=== PATIENT | female | born 1945 | race Caucasian/White ===

== ENCOUNTER 2019-05-06 20:25 | Observation (INO) | payer MEDICARE, BC ==
--- NOTE | 2019-05-06 20:54 | EDM.PDOC ---
ED HPI GENERAL MEDICAL PROBLEM - General Chief Complaint: General Stated Complaint: syncope Time Seen by Provider: 05/06/19 20:45 Source of Information: Reports: Patient, Family (Son, daughter), Old Records ( [facility] EMR. No paper hospital chart available.) History Limitations: Reports: No Limitations - History of Present Illness INITIAL COMMENTS - FREE TEXT/NARRATIVE: The patient was brought to the emergency room via ambulance with jacquard loom carpet weaver accompaniment with failed attempted IV access in route, however no other treatment. Per history from the patient's son and daughter the patient had a true syncopal episode while sitting in her chair at about 19:55 hours with moderate diaphoresis and loss of consciousness for about 45-60 seconds with subsequent 10-15 minute episode of some sedation and confusion. Previous history of syncopal episodes with no noted seizure activity, urine/stool incontinence, etc.. No history of recent headaches, visual changes, diplopia, change in mental status, or other change in neurological status. The patient denies any chest pain/pressure, heart flutter, orthostasis, orthopnea, diaphoresis, paresthesias, recent decreased exercise tolerance, or any other anginal-type symptoms. She has had some problems with about 20 loose watery stools since early this morning with additional multiple family members having viral gastroenteritis. No recent history of abdominal pain, heartburn, nausea, melena, gross hematochezia, or any food intolerance, including fatty foods, etc.. No known history of food poisoning. The patient also denies any recent fever, cough, wheezing, dyspnea, etc.. Home Accu-Cheks have been averaging in the 120s to 130s and ranging between the 90s-160s. She denies any gross hematuria, colic, or other UTI symptoms. Onset: Today, Sudden Onset Date: 05/06/19 Onset Time: 19:55 Duration: Resolved Prior to Arrival Location: Reports: Other (No pain) Improves with: Reports: None Worsens with: Reports: None Context: Reports: Sick Contact (Viral GE as above). Denies: Trauma (No history of fall or injury) Associated Symptoms: Reports: Confusion, Diaphoresis, Syncope. Denies: Chest Pain, Cough, Fever/Chills, Headaches, Loss of Appetite, Malaise, Nausea/Vomiting , Seizure, Shortness of Breath, Weakness Treatments PRODUCTION SERVICE MANAGER: Reports: Other (see below) (None) - Related Data Allergies Allergy/AdvReac Type Severity Reaction Status Date / Time No Known Allergies Allergy Verified 05/06/19 20:31 Home Meds: Home Meds Aspirin [Ecotrin EC] 1 tab PO DAILY 05/06/19 [History] Metoprolol Tartrate [Lopressor] 2 tab PO DAILY 05/06/19 [History] Nitroglycerin [Nitrostat] 1 tab PO ONETIME PRN 05/06/19 [History] Triamterene/Hydrochlorothiazid [Triamterene-HCTZ 37.5-25 MG] 1 tab PO DAILY [History] glipiZIDE [Glipizide Xl] 1 tab PO DAILY 05/06/19 [History] metFORMIN [Glucophage XR] 1 tab PO BEDTIME 05/06/19 [History] metFORMIN [Glucophage XR] 2 tab PO DAILY 05/06/19 [History] Past Medical History HEENT History: Reports: Cataract, Impaired Vision, Other (See Below). Denies: Allergic Rhinitis, Glaucoma, Hard of Hearing, Macular Degeneration, Otitis Media , Retinal Detachment Other HEENT History: No history of diabetic retinopathy. Patient does wear glasses. Cardiovascular History: Reports: Bypass, CAD, High Cholesterol, Hypertension, [place] , Other (See Below). Denies: Afib, Aneurysm, Arrhythmia, Blood Clots/VTE/DVT, Cardiomyopathy, Heart Failure, Heart Murmur, PTCA, PVD, SOB on Exertion, Stents , Syncope Other Cardiovascular History: History of KS in 10/18/12 with bypass surgery as below. Respiratory History: Reports: None, Intubation, Previous. Denies: Asthma, Bronchitis, Recurrent, COPD, Intubation, Difficult, PE, Pneumothorax, Sleep Apnea, TB Gastrointestinal History: Reports: Cholelithiasis, Other (See Below). Denies: Bowel Obstruction, Celiac Disease, Chronic Constipation, Chronic Diarrhea, Colon Polyp, Diverticulosis, Fecal Incontinence, Gastritis, GERD, GI Bleed, Hepatitis, Hiatal Hernia, Inflammatory Bowel Disease, Irritable Bowel Syndrome, Jaundice, Pancreatitis, PUD Other Gastrointestinal History: Umbilical hernia. Genitourinary History: Reports: Chronic Renal Insuffiency, Diabetic Nephropathy. Denies: Acute Renal Failure, Renal Calculus, STD, Urinary Incontinence, UTI, Recurrent HEALTH PRACTICE MANAGER History: Reports: . Denies: Dysfunctional Uterine Bleeding, Endometriosis, Fibroids, Polycystic Ovaries, Spontaneous : 3 Para: 3 LMP (Approximate): Menopausal Other HEALTH PRACTICE MANAGER History: Menopause in her early 50s. Gestational diabetes with the last , which was delivered by . Otherwise full term deliveries by an NSVT without other complications. Musculoskeletal History: Reports: Arthritis, Gout, Osteoarthritis, Other (See Below). Denies: Amputation, Back Pain, Chronic, Fracture, Neck Pain, Chronic, RA, SLE Other Musculoskeletal History: Hyperuricemia with no history of gout attacks. Neurological History: Reports: None. Denies: Concussion, CVA, Frequent Repetitive Habits (TICS), Headaches, Chronic, Head Trauma, Migraines, MS, Neuropathy, Diabetic, Neuropathy, Peripheral, Parkinson's, Seizure, TIA Psychiatric History: Reports: None. Denies: Abuse, Victim of, ADD, ADHD, Addiction, Anxiety, Depression, Psych Hospitalization(s), PTSD, Suicide Attempt , Suicidal Ideation Endocrine/Metabolic History: Reports: Diabetes, Gestational, Diabetes, Type II, Obesity/BMI 30+. Denies: Diabetes Mellitus, Type 3c, Hypothyroidism, IDDM Hematologic History: Reports: None. Denies: Anemia, Blood Transfusion(s), Iron Deficiency Immunologic History: Reports: None. Denies: AIDS, HIV, SLE Oncologic (Cancer) History: Reports: None. Denies: Basal Cell Carcinoma, Breast , Cervix, Colon, Leukemia, Lymphoma, Malignant Melanoma, Non-Hodgkin's Lymphoma , Ovarian, Squamous Cell Carcinoma, Uterine Dermatologic History: Denies: Eczema, Psoriasis - Infectious Disease History Infectious Disease History: Reports: Chicken Pox, Measles, Mumps. Denies: CRE- Carbapenem-Resistant Enterobacteriaceae, Meningitis, Mononucleosis, MRSA, Pertussis (Whooping Cough), Rheumatic Fever, Rubella, Scarlet Fever, Shingles, TB, VRE - Past Surgical History Head Surgeries/Procedures: Reports: None HEENT Surgical History: Reports: Cataract Surgery, Oral Surgery, Other (See Below). Denies: Adenoidectomy, Eye Surgery, Laser Surgery, LASIK, Myringotomy w Tube(s), Naso-Sinus Surgery, Tonsillectomy Other HEENT Surgeries/Procedures: Bilateral cataract surgery at age 71. Multiple teeth extractions. Cardiovascular Surgical History: Reports: None, Coronary Artery Bypass, Other ( See Below). Denies: Varicose Other Cardiovascular Surgeries/Procedures: CABG 3 on 6/10/13. Respiratory Surgical History: Reports: None. Denies: Thoracentesis GI Surgical History: Reports: Cholecystectomy, Colonoscopy, Other (See Below). Denies: Appendectomy, EGD, Hernia, Abdominal, Hernia, Inguinal, Hernia Repair/ Other, Polypectomy Other GI Surgeries/Procedures: Last colonoscopy in about 2014. Open cholecystectomy in October 1983. Female Surgical History: Reports: Section, Other (See Below). Denies: Breast Biopsy, D&C, Hysterectomy, Salpingo-Oophorectomy, Tubal Ligation Other Female Surgeries/Procedures: as above. Endocrine Surgical History: Reports: None. Denies: Thyroid Biopsy Neurological Surgical History: Reports: None. Denies: C-Spine, Discectomy, Laminectomy, Lumbar Spine, Sacral Spine, Spinal Fusion, Thoracic Spine, Vertebroplasty Musculoskeletal Surgical History: Reports: None. Denies: Arthroscopic Knee, Arthroscopic Procedure, Carpal Tunnel, Ganglion Cyst, Joint Replacement, ORIF, Shoulder Surgery Oncologic Surgical History: Reports: None Dermatological Surgical History: Reports: None - Past Imaging History Past Imaging History: Reports: Angiography (October 2012.) Social & Family History - Family History HEENT: Reports: None. Denies: Glaucoma, Macular Degeneration, Retinal Detachment Cardiac: Reports: Bypass, CAD, High Cholesterol, Hypertension, [place], Other (See Below). Denies: Afib, Arrhythmia, Heart Failure, Heart Murmur, Syncope Other Cardiac Family History: Brother with initial KS at age 42 with subsequent multiple MIs and CABGs. Another brother with CABG at age 65. Hypertension in father, brothers 3, and sister. Multiple family members with hyperlipidemia. Respiratory: Reports: Sleep Apnea, Other (See Below). Denies: Asthma, COPD, PE , Pneumothorax Other Respiratory Family Hisory: Son and brothers 2 with sleep apnea. GI: Reports: None. Denies: Celiac Disease, Cholelithiasis, Colon Polyps, GERD, GI bleed, Inflammatory Bowel Disease, Irritable Bowel Syndrome, PUD : Reports: Renal Calculus, UTI, Recurrent. Denies: Renal Disease/ Insufficiency Other Family History: Father with urolithiasis. OBGYN: Reports: None. Denies: Endometriosis, Recurrent Spontaneous Musculoskeletal: Reports: Arthritis, Osteoarthritis, Other (See Below). Denies : Gout, RA, SLE Other Musculoskeletal Family History: Multiple family members with osteoarthritis. Neurological: Reports: CVA, Other (See Below). Denies: Alzheimers Disease, Cerebral Aneurysms, Dementia, Migraines, Parkinson's, Seizure, TIA Other Neurological Family History: Paternal grandmother with organic brain syndrome. Sister with CVA at age 56. Psychiatric: Reports: None. Denies: Abuse, Victim of, ADD, ADHD, Anxiety, Depression, Psych Hospitalization(s), PTSD, Suicide Attempt Endocrine/Metabolic: Reports: Diabetes, type II, Hypoparathyroidism, Hypothyroidism, IDDM, Other (See Below). Denies: Diabetes, Gestational, Diabetes, Type I, Diabetes Mellitus, Type 3c Other Endocrine/Metabolic Family History: Father with IDDM. Mother with history of goiter with secondary hypothyroidism and hypoparathyroidism. Hematologic: Reports: None. Denies: Anemia, SLE Immunologic: Reports: None. Denies: AIDS, HIV, SLE Dermatologic: Reports: None. Denies: Eczema, Psoriasis Oncologic: Reports: None - Tobacco Use Smoking Status *Q: Never Smoker Tobacco Use Within Last Twelve Months: No Used Tobacco, but Quit: No Smoking Cessation Information Provided To Patient: No Second Hand Smoke Education Provided: No - Caffeine Use Caffeine Use: Reports: Coffee (2 cups per day), Soda (1 soda per month), Tea ( Tea when she does not drink coffee.). Denies: Energy Drinks - Alcohol Use Alcohol Use History: No Days Per Week of Alcohol Use: 0 Number of Drinks Per Day: 1 Number of Drinks Per Day Comment: Usually every 13 weeks. No previous DWIs, problems with alcohol abuse, etc. Total Drinks Per Week: 0 Alcohol Use in Last Twelve Months: Yes - Recreational Drug Use Recreational Drug Use: No Drug Use in Last 12 Months: No Recreational Drug Type: Denies: Amphetamines (Speed), Cocaine, Heroin, Inhalants (Glues, Solvents, Aerosols), LSD (Acid), Marijuana/Hashish, Methamphetamine, Morphine, Oxycodone - Living Situation & Occupation Living situation: Reports: (1978. 3 children), with Family () Occupation: Retired (Former teacher retired at age 67.) ED ROS GENERAL - Review of Systems Review Of Systems: Comprehensive ROS is negative, except as noted in HPI. ED EXAM, GENERAL - Physical Exam Exam: See Below Exam Limited By: No Limitations General Appearance: Alert, WD/WN, No Apparent Distress Eye Exam: Bilateral Eye: EOMI, Normal Fundi, Normal Inspection (No nystagmus. Patient wearing glasses), PERRL Ears: Normal External Exam, Normal Canal, Hearing Grossly Normal, Normal TMs Nose: Normal Inspection, Normal Mucosa, No Blood Throat/Mouth: Normal Lips, Normal Gums, Normal Oropharynx, Normal Voice, No Airway Compromise. No: Normal Teeth (Multiple missing teeth), Dysphagia, Perioral Cyanosis Head: Atraumatic, Normocephalic. No: Facial Swelling, Facial Tenderness, Sinus Tenderness Neck: Supple, Non-Tender, Full Range of Motion, Carotid Bruit (Mild bilateral carotid bruits). No: Lymphadenopathy (L), Lymphadenopathy (R), Thyromegaly Respiratory/Chest: No Respiratory Distress, Lungs Clear, Normal Breath Sounds, No Accessory Muscle Use, Chest Non-Tender. No: Pleural Rub, Retractions Cardiovascular: Normal Peripheral Pulses, Regular Rate, Rhythm, No Edema, No Gallop, No JVD, No Murmur, No Rub. No: Gallop/S3, Gallop/S4, Friction Rub Peripheral Pulses: 2+: Radial (L), Radial (R), Dorsalis Pedis (L), Dorsalis Pedis (R) GI/Abdominal: Normal Bowel Sounds, Soft, Non-Tender, No Organomegaly, No Distention, No Abnormal Bruit, No Mass, Pelvis Stable, Hernia (2 cm nonincarcerated umbilical hernia), Other (Obese). No: Guarding (Female) Exam: Deferred Rectal (Female) Exam: Deferred Back Exam: Full Range of Motion, Other (Mild scoliosis). No: CVA Tenderness (L) , CVA Tenderness (R), Muscle Spasm Extremities: Normal Inspection, Normal Range of Motion, Non-Tender, No Pedal Edema, Normal Capillary Refill. No: Conchis's Sign Neurological: Alert, Oriented, CN II-XII Intact, Normal Cognition, Normal Gait, Normal Reflexes (Negative Babinski's, finger to nose, and pronator rotation tests. No evidence of facial paresis, tongue deviation, orthostasis, etc.. Excellent reverse thought processes.), No Motor/Sensory Deficits Psychiatric: Normal Affect, Normal Mood Skin Exam: Warm, Dry, Intact, Normal Color, No Rash. No: Diaphoretic, Wound/ Incision Lymphatic: No Adenopathy EKG INTERPRETATION EKG Date: 05/06/19 Time: 21:45 Rhythm: NSR Rate (Beats/Min): 74 Sc[place]mon: Normal (Neutral) P-Wave: Enlarged (Moderate diffuse biphasic) QRS: Normal (0.08 seconds) ST-T: Other (Nonspecific ST changes with T-wave inversion in leads V1 through V3 ) OR/PQ Interval: 0.18 seconds with extreme poor R-wave progression in the anterior leads. Comparison: NA - No Prior EKG EKG Interpretation Comments: 1. Anterior wall cardiac ischemia 2. Left atrial enlargement Course - Vital Signs Last Recorded V/S: Last Vital Signs Temp 36.6 C 05/06/19 21:23 Pulse 76 05/06/19 21:31 Resp 16 05/06/19 21:31 BP 140/61 05/06/19 21:31 Pulse Ox 97 05/06/19 21:31 Vital Signs - 24 hr 05/06/19 05/06/19 05/06/19 20:29 21:23 21:31 Temperature [ 35.3 C 36.6 C Temporal] Pulse, 78 78 76 Peripheral [ Pulse Oximetry] Respiratory 16 18 16 Rate Blood Pressure 151/67 H 137/62 140/61 [Left] O2 Sat by Pulse 100 98 97 Oximetry - Orders/Labs/Meds Orders: Active Orders 24 hr Category Date Time Status Cardiac Monitoring [RC] . DIRECTED Care 05/06/19 20:54 Active EKG Documentation Completion [RC] ASDIRECTED Care 05/06/19 20:54 Active Oxygen Therapy, ED [RC] PRN Care 05/06/19 20:54 Active Peripheral IV Care [RC] . DIRECTED Care 05/06/19 20:54 Active Pulse Oximetry [RC] CONTINUOUS Care 05/06/19 20:54 Active Up With Assistance [RC] PFP Care 05/06/19 20:54 Active Vital Signs [RC] PFP Care 05/06/19 20:54 Active Nothing per Oral Now Diet [DIET] Diet 05/06/19 Breakfast Active Abdomen Series w Chest 1V [CR] Routine Exams 05/06/19 20:56 Taken PROLACTIN [REF] Stat Lab 05/06/19 21:04 Received Lactated Ringers [Ringers, Lactated] 1,000 ml Med 05/06/19 21:00 Active IV ASDIRECTED Sodium Chloride 0.9% [Saline Flush] Med 05/06/19 20:54 Active 10 ml FLUSH ASDIRECTED PRN Obtain Past Medical Record [OM.PC] Urgent Oth 05/06/19 20:54 Active Peripheral IV Insertion Adult [OM.PC] Stat Oth 05/06/19 20:54 Ordered Resuscitation Status Stat Resus Stat 05/06/19 20:54 Ordered Medication Orders Lactated Ringer's (Ringers, Lactated) 1,000 mls @ 100 mls/hr IV ASDIRECTED RAMÓN Last Admin: 05/06/19 21:17 Dose: 100 mls/hr Sodium Chloride (Saline Flush) 10 ml FLUSH ASDIRECTED PRN PRN Reason: Keep Vein Open Last Admin: 05/06/19 21:18 Dose: 10 ml Labs: Laboratory Tests 05/06/19 05/06/19 05/06/19 Range/Units 21:04 21:04 21:04 WBC 11.8 H (4.0-10.2) K/uL RBC 4.97 (3.77-5.09) M/uL Hgb 14.5 (11.7-15.5) g/dL Hct 44.2 (34.0-46.0) % MCV 88.9 (84.0-98.0) fL MCH 29.2 (28.2-33.3) pg MCHC 32.8 (31.7-36.0) g/dL RDW 14.5 H (11.2-14.1) % Plt Count 279 (150-350) K/uL Neut % (Auto) 89.0 H (45.0-80.0) % Lymph % (Auto) 2.9 L (10.0-50.0) % Gordon % (Auto) 7.3 (2.0-14.0) % Eos % (Auto) 0.6 (0.0-5.0) % Baso % (Auto) 0.2 (0.0-2.0) % Neut # (Auto) 10.47 H (1.40-7.00) K/uL Lymph # (Auto) 0.34 L (0.50-3.50) K/uL Gordon # (Auto) 0.86 (0.00-1.00) K/uL Eos # (Auto) 0.07 (0.00-0.50) K/uL Baso # (Auto) 0.02 (0.00-0.20) K/uL PT 11.4 (9.5-12.0) SEC INR 1.1 APTT 28.8 (21.0-31.3) SEC D-Dimer, Quantitative 272 (0-400) ng/mL Sodium (136-145) mmol/L Potassium (3.5-5.1) mmol/L Chloride (98-107) mmol/L Carbon Dioxide (21.0-32.0) mmol/L BUN (7-18) mg/dL Creatinine (0.51-1.17) mg/dL Est Cr Clr Drug Dosing mL/min Estimated GFR (MDRD) mL/min Glucose (74-106) mg/dL Lactic Acid (0.4-2.0) mmol/L Uric Acid (2.6-7.2) mg/dL Calcium (8.5-10.1) mg/dL Magnesium (1.8-2.4) mg/dL Total Bilirubin (0.2-1.0) mg/dL AST (15-37) U/L ALT (12-78) U/L Alkaline Phosphatase (46-116) IU/L Creatine Kinase (26-308) U/L Creatine Kinase Index (0.0-2.5) % CK-MB (CK-2) (0.00-3.60) ng/mL Troponin I (0.000-0.056) ng/mL NT-Pro-B Natriuret Pep (0-125) pg/mL Total Protein (6.4-8.2) g/dL Albumin (3.4-5.0) g/dL Amylase (25-115) U/L Lipase (73-393) U/L TSH, Ultra Sensitive (0.358-3.740) mIU/mL 05/06/19 05/06/19 Range/Units 21:04 21:04 WBC (4.0-10.2) K/uL RBC (3.77-5.09) M/uL Hgb (11.7-15.5) g/dL Hct (34.0-46.0) % MCV (84.0-98.0) fL MCH (28.2-33.3) pg MCHC (31.7-36.0) g/dL RDW (11.2-14.1) % Plt Count (150-350) K/uL Neut % (Auto) (45.0-80.0) % Lymph % (Auto) (10.0-50.0) % Gordon % (Auto) (2.0-14.0) % Eos % (Auto) (0.0-5.0) % Baso % (Auto) (0.0-2.0) % Neut # (Auto) (1.40-7.00) K/uL Lymph # (Auto) (0.50-3.50) K/uL Gordon # (Auto) (0.00-1.00) K/uL Eos # (Auto) (0.00-0.50) K/uL Baso # (Auto) (0.00-0.20) K/uL PT (9.5-12.0) SEC INR APTT (21.0-31.3) SEC D-Dimer, Quantitative (0-400) ng/mL Sodium 134 L (136-145) mmol/L Potassium 4.2 (3.5-5.1) mmol/L Chloride 99 (98-107) mmol/L Carbon Dioxide 25.2 (21.0-32.0) mmol/L BUN 21 H (7-18) mg/dL Creatinine 1.09 (0.51-1.17) mg/dL Est Cr Clr Drug Dosing 42.60 mL/min Estimated GFR (MDRD) 49 mL/min Glucose 184 H (74-106) mg/dL Lactic Acid 1.6 (0.4-2.0) mmol/L Uric Acid 10.4 H (2.6-7.2) mg/dL Calcium 9.4 (8.5-10.1) mg/dL Magnesium 1.4 L (1.8-2.4) mg/dL Total Bilirubin 0.4 (0.2-1.0) mg/dL AST 21 (15-37) U/L ALT 28 (12-78) U/L Alkaline Phosphatase 64 (46-116) IU/L Creatine Kinase 92 (26-308) U/L Creatine Kinase Index 2.0 (0.0-2.5) % CK-MB (CK-2) 1.80 (0.00-3.60) ng/mL Troponin I 0.000 (0.000-0.056) ng/mL NT-Pro-B Natriuret Pep 419 H (0-125) pg/mL Total Protein 8.2 (6.4-8.2) g/dL Albumin 3.8 (3.4-5.0) g/dL Amylase 56 (25-115) U/L Lipase 195 (73-393) U/L TSH, Ultra Sensitive 2.218 (0.358-3.740) mIU/mL Meds: Medications Generic Name Dose Route Start Last Admin Trade Name Freq PRN Reason Stop Dose Admin Lactated Ringer's 1,000 mls @ 100 mls/hr 05/06/19 21:00 05/06/19 21:17 Ringers, Lactated IV 100 mls/hr ASDIRECTED RAMÓN Administration Sodium Chloride 10 ml 05/06/19 20:54 05/06/19 21:18 Saline Flush FLUSH 10 ml ASDIRECTED PRN Administration Keep Vein Open Discontinued Medications Generic Name Dose Route Start Last Admin Trade Name Freq PRN Reason Stop Dose Admin Famotidine 40 mg 05/06/19 20:54 05/06/19 21:17 Pepcid IVPUSH 05/06/19 20:55 40 mg ONETIME ONE Administration - Radiology Interpretation Free Text/Narrative:: campus monitor shows normal sinus rhythm in the 70s with no ectopy or arrhythmia. Acute abdominal x-rays showed status post median sternotomy and cholecystectomy with moderate osteoarthritic changes and mild scoliosis in the spine. Nonspecific bowel gaseous pattern and stool with no fluid levels, free air, ileus, or obstruction. No significant cardiomegaly with borderline mild centralized CHF. Departure - Departure Time of Disposition: 22:35 Disposition: Refer to Observation Condition: Good Clinical Impression: Hyperuricemia, Hypomagnesemia, Viral gastroenteritis Syncope Qualifiers: Syncope type: unspecified Qualified Code(s): R55 - Syncope and collapse CAD (coronary artery disease) Qualifiers: Coronary Disease-Associated Artery/Lesion type: bypass graft [place] vs. transplanted heart: [place] heart Associated angina: without angina Qualified Code(s): I25.810 - Atherosclerosis of coronary artery bypass graft(s) without angina pectoris Hypertension Qualifiers: Hypertension type: essential hypertension Qualified Code(s): I10 - Essential ( primary) hypertension Hyperlipidemia Qualifiers: Hyperlipidemia type: unspecified Qualified Code(s): E78.5 - Hyperlipidemia, unspecified CHF (congestive heart failure) Qualifiers: Heart failure type: unspecified Heart failure chronicity: acute Qualified Code( s): I50.9 - Heart failure, unspecified Diabetes mellitus Qualifiers: Diabetes mellitus type: type 2 Diabetes mellitus rodent exterminator insulin use: without rodent exterminator use Diabetes mellitus complication status: with kidney complications Diabetes mellitus complication detail: with nephropathy Qualified Code(s): E11.21 - Type 2 diabetes mellitus with diabetic nephropathy - Discharge Information *PRESCRIPTION DRUG MONITORING PROGRAM REVIEWED*: Not Applicable *COPY OF PRESCRIPTION DRUG MONITORING REPORT IN PATIENT WARREN: Not Applicable ( See plan) Sepsis Event Note - Focused Exam Vital Signs: Vital Signs Temp Pulse Resp BP Pulse Ox 05/06/19 21:31 76 16 140/61 97 05/06/19 21:23 36.6 C 78 18 137/62 98 05/06/19 20:29 35.3 C 78 16 151/67 H 100 Date Exam was Performed: 05/06/19 Time Exam was Performed: 22:35 - Problem List & Annotations (1) Syncope SNOMED Code(s): 400838256 Code(s): R55 - SYNCOPE AND COLLAPSE Status: Acute Priority: High Current Visit: Yes Onset Date: 05/06/19 Annotation/Comment:: Syncopal episode of unknown etiology. Note anterior wall ischemic changes as below. Cannot rule out possible seizure disorder secondary to post episode confusion and sedation. Prolactin level drawn with results pending. Consider CT scan of the head depending on her clinical course. No neurological deficits. Qualifiers: Syncope type: unspecified Qualified Code(s): R55 - Syncope and collapse (2) CAD (coronary artery disease) SNOMED Code(s): 41533328 Code(s): I25.10 - ATHSCL HEART DISEASE OF [place] CORONARY ARTERY W/O ANG PCTRS Status: Chronic Priority: Medium Current Visit: Yes Annotation/ Comment:: Chest pain or anginal type symptoms, however note mild possible anterior wall cardiac ischemia and borderline CHF. Initiate standard rule out [place] orders. Cardiology consultation depending on her clinical course. Patient may benefit from an outpatient Cardiolite stress test. Qualifiers: Coronary Disease-Associated Artery/Lesion type: bypass graft [place] vs. transplanted heart: [place] heart Associated angina: without angina Qualified Code(s): I25.810 - Atherosclerosis of coronary artery bypass graft(s) without angina pectoris (3) CHF (congestive heart failure) SNOMED Code(s): 34657155 Code(s): I50.9 - HEART FAILURE, UNSPECIFIED Status: Acute Priority: High Current Visit: Yes Onset Date: 05/06/19 Annotation/Comment:: Mild BNP elevation and centralized CHF by chest x-ray. Patient would benefit from an outpatient echocardiogram. IV fluids with caution secondary to CHF with viral gastroenteritis as below. Qualifiers: Heart failure type: unspecified Heart failure chronicity: acute Qualified Code(s): I50.9 - Heart failure, unspecified (4) Diabetes mellitus SNOMED Code(s): 95757241 Code(s): E11.9 - TYPE 2 DIABETES MELLITUS WITHOUT COMPLICATIONS Status: Chronic Priority: Medium Current Visit: Yes Annotation/Comment:: Accu- Cheks have been under good control at home as above. Glycosylated hemoglobin in the a.m. Qualifiers: Diabetes mellitus type: type 2 Diabetes mellitus rodent exterminator insulin use: without rodent exterminator use Diabetes mellitus complication status: with kidney complications Diabetes mellitus complication detail: with nephropathy Qualified Code(s): E11.21 - Type 2 diabetes mellitus with diabetic nephropathy (5) Hyperlipidemia SNOMED Code(s): 25165116 Code(s): E78.5 - HYPERLIPIDEMIA, UNSPECIFIED Status: Chronic Priority: Medium Current Visit: Yes Annotation/Comment:: Lipid panel in the a.m. Weight loss in moderation as advised. Qualifiers: Hyperlipidemia type: unspecified Qualified Code(s): E78.5 - Hyperlipidemia , unspecified (6) Hypertension SNOMED Code(s): 15687992 Code(s): I10 - ESSENTIAL (PRIMARY) HYPERTENSION Status: Chronic Priority : Medium Current Visit: Yes Annotation/Comment:: Blood pressures under good control in the emergency room. Qualifiers: Hypertension type: essential hypertension Qualified Code(s): I10 - Essential (primary) hypertension (7) Hyperuricemia SNOMED Code(s): 76996271 Code(s): E79.0 - HYPERURICEMIA W/O SIGNS OF INFLAM ARTHRIT AND TOPHACEOUS DIS Status: Chronic Priority: Medium Current Visit: Yes Annotation/ Comment:: No recent gout attacks or symptoms. Her arthritis is otherwise been stable. (8) Hypomagnesemia SNOMED Code(s): 083836868 Code(s): E83.42 - HYPOMAGNESEMIA Status: Acute Priority: Medium Current Visit: Yes Onset Date: 05/06/19 Annotation/Comment:: IV magnesium sulfate therapy after admission. No oral magnesium for now secondary to her diarrhea. (9) Viral gastroenteritis SNOMED Code(s): 154641779 Code(s): A08.4 - VIRAL INTESTINAL INFECTION, UNSPECIFIED Status: Acute Priority: Medium Current Visit: Yes Annotation/Comment:: Probable mild viral gastroenteritis with no significant clinical dehydration, however note syncopal episode as above. IV fluids started with caution in the emergency room as above and will be continued during initial courses of this hospitalization. Consider stool cultures etc. depending on her clinical course, however observe for now. - Problem List Review Problem List Initiated/Reviewed/Updated: Yes - My Orders Last 24 Hours: My Active Orders 05/06/19 20:54 Cardiac Monitoring [RC] . DIRECTED EKG Documentation Completion [RC] ASDIRECTED Oxygen Therapy, ED [RC] PRN Peripheral IV Care [RC] . DIRECTED Pulse Oximetry [RC] CONTINUOUS Up With Assistance [RC] PFP Vital Signs [RC] PFP Sodium Chloride 0.9% [Saline Flush] 10 ml FLUSH ASDIRECTED PRN Obtain Past Medical Record [OM.PC] Urgent Peripheral IV Insertion Adult [OM.PC] Stat Resuscitation Status Stat 05/06/19 20:56 Abdomen Series w Chest 1V [CR] Routine 05/06/19 21:00 Lactated Ringers [Ringers, Lactated] 1,000 ml IV ASDIRECTED 05/06/19 21:04 PROLACTIN [REF] Stat 05/06/19 Breakfast Nothing per Oral Now Diet [DIET] - Assessment/Plan Admission H&P: Please use this note as an admission H&P Last 24 Hours: My Active Orders 05/06/19 20:54 Cardiac Monitoring [RC] . DIRECTED EKG Documentation Completion [RC] ASDIRECTED Oxygen Therapy, ED [RC] PRN Peripheral IV Care [RC] . DIRECTED Pulse Oximetry [RC] CONTINUOUS Up With Assistance [RC] PFP Vital Signs [RC] PFP Sodium Chloride 0.9% [Saline Flush] 10 ml FLUSH ASDIRECTED PRN Obtain Past Medical Record [OM.PC] Urgent Peripheral IV Insertion Adult [OM.PC] Stat Resuscitation Status Stat 05/06/19 20:56 Abdomen Series w Chest 1V [CR] Routine 05/06/19 21:00 Lactated Ringers [Ringers, Lactated] 1,000 ml IV ASDIRECTED 05/06/19 21:04 PROLACTIN [REF] Stat 05/06/19 Breakfast Nothing per Oral Now Diet [DIET] Assessment:: As above. Plan: As above. Extensive precautions were given to the patient and her family, who are in agreement with the treatment plan. The patient's condition is stable enough for observation status and general supervision.
[2019-05-06] MEDS: Lactated Ringers 1,000 ML IV SCH (21:17)
[2019-05-06] MEDS: Famotidine 20 MG/2 ML SDV IVPUSH ONE (21:17)
[2019-05-06] MEDS: Sodium Chloride 0.9% 10 ML Syringe FLUSH PRN (21:18)
[2019-05-06] MEDS ORDERED: Sodium Chloride 0.9% 10 ML Syringe FLUSH PRN (22:54)
[2019-05-06] MEDS ORDERED: Acetaminophen 325 MG Tab PO PRN (22:54)
[2019-05-06] MEDS: Enoxaparin 30 MG/0.3 ML Syringe SUBCUT ONE (23:28)
[2019-05-06] MEDS: Magnesium Sulfate/D5W 1 GM/100 ML Premix Bag IV ONE (23:29)
[2019-05-07] MEDS: Temazepam 15 MG Cap PO PRN (00:20)
[2019-05-07 07:32] LABS: HEMOGLOBIN A1C 6.7 % (4.3-5.7)
[2019-05-07 07:50] LABS: CHLORIDE,CL 102 mmol/L (98-107); SODIUM,NA 138 mmol/L (136-145)
[2019-05-07] MEDS: Metoprolol Tartrate 25 MG Tab PO SCH (09:11)
[2019-05-07] MEDS: Hydrochlorothiazide/Triamterene 50-75 MG Tab PO SCH (09:11)
[2019-05-07] MEDS: Aspirin 325 MG Tab.EC PO SCH (09:11)
[2019-05-07] MEDS: metFORMIN 500 MG Tab.ER PO SCH (09:11)
[2019-05-07] MEDS: glipiZIDE 5 MG Tab.ER PO SCH (09:11)
--- NOTE | 2019-05-07 12:45 | PCM.DCSUM1 ---
Discharge Summary - Hospital Course Brief History: Patient admitted for observation and IV fluids after experiencing gastroenteritis that likely led to syncopal episode. Diagnosis: Stroke: No - Discharge Data Discharge Date: 05/07/19 Discharge Disposition: Home, Self-Care 01 Condition: Good - Referral to Home Health Primary Care Physician: Cherise Anderson PA-C - Discharge Diagnosis/Problem(s) (1) Viral gastroenteritis SNOMED Code(s): 722135226 ICD Code: A08.4 - VIRAL INTESTINAL INFECTION, UNSPECIFIED Status: Acute Priority: Medium Current Visit: Yes Problem Details: Probable mild viral gastroenteritis with no significant clinical dehydration. Syncopal episode. No further emesis/loose stools. Patient feels much better today. (2) Hypomagnesemia SNOMED Code(s): 891392243 ICD Code: E83.42 - HYPOMAGNESEMIA Status: Acute Priority: Medium Current Visit: Yes Onset Date: 05/06/19 Problem Details: IV magnesium sulfate therapy after admission. Continue regular oral supplementation after discharge. (3) CHF (congestive heart failure) SNOMED Code(s): 06691435 ICD Code: I50.9 - HEART FAILURE, UNSPECIFIED Status: Acute Priority: High Current Visit: Yes Onset Date: 05/06/19 Problem Details: Mild BNP elevation and centralized CHF by chest x-ray. Patient would benefit from an outpatient echocardiogram. Will have her follow up with primary provider. Qualifiers: Heart failure type: unspecified Heart failure chronicity: acute Qualified Code(s): I50.9 - Heart failure, unspecified (4) Syncope SNOMED Code(s): 631693604 ICD Code: R55 - SYNCOPE AND COLLAPSE Status: Acute Priority: High Current Visit: Yes Onset Date: 05/06/19 Problem Details: Syncopal episode accompanied by significant gastroenteritis/diarrhea. Suspect it to be secondary to the illness. However,cannot rule out possible etiology such as seizure disorder secondary to post episode confusion and sedation. To observe for recurrence/follow up with primary provider. Qualifiers: Syncope type: unspecified Qualified Code(s): R55 - Syncope and collapse (5) CAD (coronary artery disease) SNOMED Code(s): 01364916 ICD Code: I25.10 - ATHSCL HEART DISEASE OF [place] CORONARY ARTERY W/O ANG PCTRS Status: Chronic Priority: Medium Current Visit: Yes Problem Details: No complaint of chest pain. Troponins negative. No changes observed on telemetry during hospitalization. To follow up with primary provider. Patient may benefit from an outpatient Cardiolite stress test. Qualifiers: Coronary Disease-Associated Artery/Lesion type: bypass graft [place] vs. transplanted heart: [place] heart Associated angina: without angina Qualified Code(s): I25.810 - Atherosclerosis of coronary artery bypass graft(s) without angina pectoris (6) Diabetes mellitus SNOMED Code(s): 38254181 ICD Code: E11.9 - TYPE 2 DIABETES MELLITUS WITHOUT COMPLICATIONS Status: Chronic Priority: Medium Current Visit: Yes Problem Details: Accu-Cheks have been under good control at home as above. Glycosylated hemoglobin 6.7 Qualifiers: Diabetes mellitus type: type 2 Diabetes mellitus manager intermediate insulin use: without intermediate use Diabetes mellitus complication status: with kidney complications Diabetes mellitus complication detail: with nephropathy Qualified Code(s): E11.21 - Type 2 diabetes mellitus with diabetic nephropathy (7) Hypertension SNOMED Code(s): 75493800 ICD Code: I10 - ESSENTIAL (PRIMARY) HYPERTENSION Status: Chronic Priority : Medium Current Visit: Yes Problem Details: Blood pressures under overall good control. To follow up with primary provider. Qualifiers: Hypertension type: essential hypertension Qualified Code(s): I10 - Essential (primary) hypertension (8) Hyperuricemia SNOMED Code(s): 27007456 ICD Code: E79.0 - HYPERURICEMIA W/O SIGNS OF INFLAM ARTHRIT AND TOPHACEOUS DIS Status: Chronic Priority: Medium Current Visit: Yes Problem Details : No recent gout attacks or symptoms. Her arthritis is otherwise been stable. (9) Hyperlipidemia SNOMED Code(s): 17504524 ICD Code: E78.5 - HYPERLIPIDEMIA, UNSPECIFIED Status: Chronic Priority: Medium Current Visit: Yes Problem Details: Normal cholesterol and LDL. Low HDL. Trigs pending at this time. Weight loss in moderation as advised. To follow up with primary provider. Qualifiers: Hyperlipidemia type: unspecified Qualified Code(s): E78.5 - Hyperlipidemia , unspecified - Patient Summary/Data Hospital Course: Patient received IV fluids and Magnesium replacement. Observed overnight. Unremarkable telemetry. No further episodes of loose stools. Feels much better this morning. Had breakfast. Troponin negative. Mag slightly improved. WBC normalized. Patient would like to go home. Plan at this time is to give her one additional dose of IV Mag and she will then be discharged home. Precautions reviewed prior to discharge. To follow up with primary care provider. - Patient Instructions Diet: Limited Carb (advance diet as tolerated. Recommend limited carb diet of 100-120 gm total carbs daily. ) Activity: As Tolerated Driving: Do Not Drive Showering/Bathing: May Shower Other/Special Instructions: We suspect that the syncopal episode you experienced yesterday was likely related to the GI illness you were experiencing. However, it is important to remember to consider other possible causes, especially if you have another episode. Please follow up with your regular provider and discuss if you might benefit from a stress test/cardiac echo to better look at your current heart health. Your Magnesium level was very low. Please start taking a Magnesium supplement (Mag Taurate or Mag Glycinate are very good), around 500mg daily. Your A1C level was over 6 which shows that your blood sugars have been running high. Recommend a carb limited diet. A good initial target is eating a total of 100gm of carbs daily and see how that affects your blood sugars. It can be adjusted from there. Follow up otherwise as needed if you have additional problems. Have Magnesium level rechecked in 3- 4 weeks. - Discharge Plan *PRESCRIPTION DRUG MONITORING PROGRAM REVIEWED*: Not Applicable *COPY OF PRESCRIPTION DRUG MONITORING REPORT IN PATIENT [place]: Not Applicable ( See plan) Home Medications: Home Meds Aspirin [Ecotrin EC] 1 tab PO DAILY 05/06/19 [History] Metoprolol Tartrate [Lopressor] 2 tab PO DAILY 05/06/19 [History] Nitroglycerin [Nitrostat] 1 tab PO ONETIME PRN 05/06/19 [History] Triamterene/Hydrochlorothiazid [Triamterene-HCTZ 37.5-25 MG] 1 tab PO DAILY [History] glipiZIDE [Glipizide Xl] 1 tab PO DAILY 05/06/19 [History] metFORMIN [Glucophage XR] 1 tab PO BEDTIME 05/06/19 [History] metFORMIN [Glucophage XR] 2 tab PO DAILY 05/06/19 [History] Magnesium Glycinate 500 gm MC DAILY #90 dose 05/07/19 [Rx] Forms: ED Department Discharge Referrals: Cherise Anderson PA-C [Primary Care Provider] - - Discharge Summary/Plan Comment DC Time >30 min.: Yes (To be discharged after receiving Magnesium dose IV) - General Info Date of Service: 05/07/19 Admission Dx/Problem (Free Text: Diarrhea/syncopal episode/dehydration Subjective Update: Patient feels tired but overall feels much better today. Functional Status: Reports: Pain Controlled, Tolerating Diet, Ambulating, Urinating. Denies: New Symptoms - Review of Systems General: Reports: Fatigue. Denies: Fever, Malaise, Chills, Night Sweats HEENT: Reports: No Symptoms Pulmonary: Reports: No Symptoms Cardiovascular: Reports: No Symptoms. Denies: Chest Pain, Palpitations, Lightheadedness Gastrointestinal: Denies: Abdominal Pain, Diarrhea, Hematochezia, Nausea, Vomiting Genitourinary: Reports: No Symptoms Musculoskeletal: Reports: No Symptoms Skin: Reports: No Symptoms Neurological: Reports: No Symptoms Psychiatric: Reports: No Symptoms - Patient Data Vitals - Most Recent: Last Vital Signs Temp 36.7 C 05/07/19 12:00 Pulse 65 05/07/19 12:00 Resp 17 05/07/19 12:00 BP 155/79 H 05/07/19 09:11 Pulse Ox 94 L 05/07/19 12:00 Weight - Most Recent: 95.345 kg I&O - Last 24 hours: Intake & Output 05/06/19 05/07/19 05/07/19 22:59 06:59 14:59 Output Total 400 Balance -400 Lab Results - Last 24 hrs: Laboratory Results - last 24 hr 05/06/19 05/06/19 05/06/19 Range/Units 21:04 21:04 21:04 WBC 11.8 H (4.0-10.2) K/uL RBC 4.97 (3.77-5.09) M/uL Hgb 14.5 (11.7-15.5) g/dL Hct 44.2 (34.0-46.0) % MCV 88.9 (84.0-98.0) fL MCH 29.2 (28.2-33.3) pg MCHC 32.8 (31.7-36.0) g/dL RDW 14.5 H (11.2-14.1) % Plt Count 279 (150-350) K/uL Neut % (Auto) 89.0 H (45.0-80.0) % Lymph % (Auto) 2.9 L (10.0-50.0) % [place] % (Auto) 7.3 (2.0-14.0) % Eos % (Auto) 0.6 (0.0-5.0) % Baso % (Auto) 0.2 (0.0-2.0) % Neut # (Auto) 10.47 H (1.40-7.00) K/uL Lymph # (Auto) 0.34 L (0.50-3.50) K/uL [place] # (Auto) 0.86 (0.00-1.00) K/uL Eos # (Auto) 0.07 (0.00-0.50) K/uL Baso # (Auto) 0.02 (0.00-0.20) K/uL PT 11.4 (9.5-12.0) SEC INR 1.1 APTT 28.8 (21.0-31.3) SEC D-Dimer, Quantitative 272 (0-400) ng/mL Sodium (136-145) mmol/L Potassium (3.5-5.1) mmol/L Chloride (98-107) mmol/L Carbon Dioxide (21.0-32.0) mmol/L BUN (7-18) mg/dL Creatinine (0.51-1.17) mg/dL Est Cr Clr Drug Dosing mL/min Estimated GFR (MDRD) mL/min Glucose (74-106) mg/dL Hemoglobin A1c (4.3-5.7) % Lactic Acid (0.4-2.0) mmol/L Uric Acid (2.6-7.2) mg/dL Calcium (8.5-10.1) mg/dL Magnesium (1.8-2.4) mg/dL Total Bilirubin (0.2-1.0) mg/dL AST (15-37) U/L ALT (12-78) U/L Alkaline Phosphatase (46-116) IU/L Creatine Kinase (26-308) U/L Creatine Kinase Index (0.0-2.5) % CK-MB (CK-2) (0.00-3.60) ng/mL Troponin I (0.000-0.056) ng/mL NT-Pro-B Natriuret Pep (0-125) pg/mL Total Protein (6.4-8.2) g/dL Albumin (3.4-5.0) g/dL Cholesterol (100-200) mg/dL LDL Cholesterol, Calc (0-100) mg/dL HDL Cholesterol (40-60) mg/dL Amylase (25-115) U/L Lipase (73-393) U/L TSH, Ultra Sensitive (0.358-3.740) mIU/mL 05/06/19 05/06/19 05/07/19 Range/Units 21:04 21:04 07:10 WBC 7.0 (4.0-10.2) K/uL RBC 4.40 (3.77-5.09) M/uL Hgb 12.9 D (11.7-15.5) g/dL Hct 39.0 (34.0-46.0) % MCV 88.6 (84.0-98.0) fL MCH 29.3 (28.2-33.3) pg MCHC 33.1 (31.7-36.0) g/dL RDW 14.3 H (11.2-14.1) % Plt Count 241 (150-350) K/uL Neut % (Auto) 76.1 (45.0-80.0) % Lymph % (Auto) 11.1 (10.0-50.0) % [place] % (Auto) 11.8 (2.0-14.0) % Eos % (Auto) 0.9 (0.0-5.0) % Baso % (Auto) 0.1 (0.0-2.0) % Neut # (Auto) 5.35 (1.40-7.00) K/uL Lymph # (Auto) 0.78 (0.50-3.50) K/uL [place] # (Auto) 0.83 (0.00-1.00) K/uL Eos # (Auto) 0.06 (0.00-0.50) K/uL Baso # (Auto) 0.01 (0.00-0.20) K/uL PT (9.5-12.0) SEC INR APTT (21.0-31.3) SEC D-Dimer, Quantitative (0-400) ng/mL Sodium 134 L (136-145) mmol/L Potassium 4.2 (3.5-5.1) mmol/L Chloride 99 (98-107) mmol/L Carbon Dioxide 25.2 (21.0-32.0) mmol/L BUN 21 H (7-18) mg/dL Creatinine 1.09 (0.51-1.17) mg/dL Est Cr Clr Drug Dosing 42.60 mL/min Estimated GFR (MDRD) 49 mL/min Glucose 184 H (74-106) mg/dL Hemoglobin A1c (4.3-5.7) % Lactic Acid 1.6 (0.4-2.0) mmol/L Uric Acid 10.4 H (2.6-7.2) mg/dL Calcium 9.4 (8.5-10.1) mg/dL Magnesium 1.4 L (1.8-2.4) mg/dL Total Bilirubin 0.4 (0.2-1.0) mg/dL AST 21 (15-37) U/L ALT 28 (12-78) U/L Alkaline Phosphatase 64 (46-116) IU/L Creatine Kinase 92 (26-308) U/L Creatine Kinase Index 2.0 (0.0-2.5) % CK-MB (CK-2) 1.80 (0.00-3.60) ng/mL Troponin I 0.000 (0.000-0.056) ng/mL NT-Pro-B Natriuret Pep 419 H (0-125) pg/mL Total Protein 8.2 (6.4-8.2) g/dL Albumin 3.8 (3.4-5.0) g/dL Cholesterol (100-200) mg/dL LDL Cholesterol, Calc (0-100) mg/dL HDL Cholesterol (40-60) mg/dL Amylase 56 (25-115) U/L Lipase 195 (73-393) U/L TSH, Ultra Sensitive 2.218 (0.358-3.740) mIU/mL 05/07/19 05/07/19 Range/Units 07:10 07:10 WBC (4.0-10.2) K/uL RBC (3.77-5.09) M/uL Hgb (11.7-15.5) g/dL Hct (34.0-46.0) % MCV (84.0-98.0) fL MCH (28.2-33.3) pg MCHC (31.7-36.0) g/dL RDW (11.2-14.1) % Plt Count (150-350) K/uL Neut % (Auto) (45.0-80.0) % Lymph % (Auto) (10.0-50.0) % [place] % (Auto) (2.0-14.0) % Eos % (Auto) (0.0-5.0) % Baso % (Auto) (0.0-2.0) % Neut # (Auto) (1.40-7.00) K/uL Lymph # (Auto) (0.50-3.50) K/uL [place] # (Auto) (0.00-1.00) K/uL Eos # (Auto) (0.00-0.50) K/uL Baso # (Auto) (0.00-0.20) K/uL PT (9.5-12.0) SEC INR APTT (21.0-31.3) SEC D-Dimer, Quantitative (0-400) ng/mL Sodium 138 (136-145) mmol/L Potassium 3.7 (3.5-5.1) mmol/L Chloride 102 (98-107) mmol/L Carbon Dioxide 25.2 (21.0-32.0) mmol/L BUN 18 (7-18) mg/dL Creatinine 0.88 (0.51-1.17) mg/dL Est Cr Clr Drug Dosing 52.76 mL/min Estimated GFR (MDRD) > 60 mL/min Glucose 102 (74-106) mg/dL Hemoglobin A1c 6.7 H (4.3-5.7) % Lactic Acid (0.4-2.0) mmol/L Uric Acid (2.6-7.2) mg/dL Calcium 8.9 (8.5-10.1) mg/dL Magnesium 1.6 L (1.8-2.4) mg/dL Total Bilirubin 0.4 (0.2-1.0) mg/dL AST 20 (15-37) U/L ALT 24 (12-78) U/L Alkaline Phosphatase 61 (46-116) IU/L Creatine Kinase 68 (26-308) U/L Creatine Kinase Index 2.2 (0.0-2.5) % CK-MB (CK-2) 1.50 (0.00-3.60) ng/mL Troponin I 0.000 (0.000-0.056) ng/mL NT-Pro-B Natriuret Pep 209 H (0-125) pg/mL Total Protein 7.3 (6.4-8.2) g/dL Albumin 3.3 L (3.4-5.0) g/dL Cholesterol 154 (100-200) mg/dL LDL Cholesterol, Calc 86 (0-100) mg/dL HDL Cholesterol 38 L (40-60) mg/dL Amylase (25-115) U/L Lipase (73-393) U/L TSH, Ultra Sensitive (0.358-3.740) mIU/mL NAT Results - Last 24 hrs: Microbiology 05/06/19 21:00 Influenza Type A Antigen Screen - Final Nasal, Left NEGATIVE INFLUENZA A VIRUS AG REFERENCE RANGE: NEGATIVE Influenza Type B Antigen Screen - Final NEGATIVE INFLUENZA B VIRUS AG REFERENCE RANGE: NEGATIVE Med Orders - Current: Current Medications Acetaminophen (Tylenol) 650 mg PO Q4H PRN PRN Reason: Pain Aspirin (Ecotrin) 325 mg PO DAILY [facility] Last Admin: 05/07/19 09:11 Dose: 325 mg Enoxaparin Sodium (Lovenox) 30 mg SUBCUT Q24H [facility] Glipizide (Glucotrol Xl) 10 mg PO DAILY [facility] Last Admin: 05/07/19 09:11 Dose: 10 mg Lactated Ringer's (Ringers, Lactated) 1,000 mls @ 100 mls/hr IV ASDIRECTED [facility] Last Admin: 05/06/19 21:17 Dose: 100 mls/hr Loperamide HCl (Imodium Ad) 2 mg PO ONETIME ONE Stop: 05/07/19 12:43 Metformin HCl (Glucophage Xr) 500 mg PO BEDTIME [facility] Metformin HCl (Glucophage Xr) 1,000 mg PO DAILY [facility] Last Admin: 05/07/19 09:11 Dose: 1,000 mg Metoprolol Tartrate (Lopressor) 50 mg PO DAILY [facility] Last Admin: 05/07/19 09:11 Dose: 50 mg Sodium Chloride (Saline Flush) 10 ml FLUSH ASDIRECTED PRN PRN Reason: Keep Vein Open Last Admin: 05/06/19 21:18 Dose: 10 ml Sodium Chloride (Saline Flush) 10 ml FLUSH Q12HR PRN PRN Reason: Keep Vein Open Temazepam (Restoril) 15 mg PO BEDTIME PRN PRN Reason: Insomnia Last Admin: 05/07/19 00:20 Dose: 15 mg Triamterene/HCTZ (Maxzide 50-75 Mg) 0.5 each PO DAILY RAMÓN Last Admin: 05/07/19 09:11 Dose: 0.5 each Discontinued Medications Enoxaparin Sodium (Lovenox) 30 mg SUBCUT ONETIME ONE Stop: 05/06/19 23:16 Last Admin: 05/06/19 23:28 Dose: 30 mg Famotidine (Pepcid) 40 mg IVPUSH ONETIME ONE Stop: 05/06/19 20:55 Last Admin: 05/06/19 21:17 Dose: 40 mg Magnesium Sulfate/Dextrose (Magnesium Sulfate In D5w 100 Premix) 1 gm IV ONETIME ONE Stop: 05/06/19 23:16 Last Admin: 05/06/19 23:29 Dose: 1 gm - Exam Quality Assessment: Reports: DVT Prophylaxis General: Reports: Alert, Oriented, Cooperative, No Acute Distress HEENT: Reports: Pupils Equal, Pupils Reactive, EOMI, Mucous Membr. Moist/[place] Neck: Reports: Supple Lungs: Reports: Clear to Auscultation, Normal Respiratory Effort Cardiovascular: Reports: Regular Rate, Regular Rhythm GI/Abdominal Exam: Normal Bowel Sounds, Soft, Non-Tender, No Distention. No: Distended, Guarding, Rigid, Rebound, Tender (Female) Exam: Deferred Rectal (Female) Exam: Deferred Back Exam: Denies: CVA Tenderness (L), CVA Tenderness (R), Muscle Spasm Extremities: Normal Range of Motion, Normal Capillary Refill Skin: Reports: Warm, Dry, Intact Neurological: Reports: No New Focal Deficit Psy/Mental Status: Reports: Alert, Normal Affect, Normal Mood EKG INTERPRETATION EKG Date: 05/07/19 Time: 08:01 Rhythm: NSR Rate (Beats/Min): 66 [place]: Normal P-Wave: Present QRS: Normal ST-T: Other (No noted depression/elevation suggestive of acute ischemia) QT: Normal Comparison: No Change
[2019-05-07] MEDS: Loperamide 2 MG Tab PO ONE (13:17)
[2019-05-07] MEDS ORDERED: metFORMIN 500 MG Tab.ER PO SCH (20:00)
[2019-05-07] MEDS ORDERED: Enoxaparin 30 MG/0.3 ML Syringe SUBCUT SCH (21:00)
== END 2019-05-07 13:35 | disposition home or self-care (01) ==
LOC: LL.ED 20:25 → UNDOADMOB 22:13 → LL.MS 22:13 → UNDODISOB 05-07 13:35
PROVIDERS: ADMIT Family Medicine; ATTEND Emergency Medicine
DX: A08.4 Viral intestinal infection, unspecified (principal); E83.42 Hypomagnesemia; R55 Syncope and collapse; I25.10 Atherosclerotic heart disease of native coronary artery without angina pectoris; I13.0 Hypertensive heart and chronic kidney disease with heart failure and stage 1 through stage 4 chronic kidney disease, or unspecified chronic kidney disease; E11.22 Type 2 diabetes mellitus with diabetic chronic kidney disease; N18.9 Chronic kidney disease, unspecified; I50.9 Heart failure, unspecified; E11.21 Type 2 diabetes mellitus with diabetic nephropathy; E79.0 Hyperuricemia without signs of inflammatory arthritis and tophaceous disease; E78.5 Hyperlipidemia, unspecified; E86.0 Dehydration; E78.00 Pure hypercholesterolemia, unspecified; M19.90 Unspecified osteoarthritis, unspecified site
CPT/HCPCS: 36415; 74022; 80053; 80061; 82150; 82550; 82553; 83036; 83605; 83690; 83735; 83880; 84146; 84443; 84484; 84550; 85025; 85379; 85610; 85730; 87804; 93005; 96361; 96372; 96374; 99285-25; A9270-GY; J1650; J3475; J3490; J7120

== ENCOUNTER 2019-07-03 08:31 | Day surgery (SDC) | payer MEDICARE, BC ==
[2019-07-03] MEDS ORDERED: Sodium Chloride 0.9% 10 ML Syringe FLUSH PRN (08:45)
[2019-07-03] MEDS ORDERED: Lactated Ringers 1,000 ML IV SCH (08:45)
[2019-07-03] MEDS ORDERED: Midazolam 1 MG/ML 2 ML SDV ONE (10:11)
[2019-07-03] MEDS ORDERED: Propofol 200 MG/20 ML SDV ONE (10:11)
--- NOTE | 2019-07-03 10:12 | PCM.HPR ---
H & P Addendum review - H & P Addendum Review Date of Original H & P: 06/11/19 Date Reviewed: 07/03/19 Time Reviewed: 10:12 Patient was Examined: No Changes
--- NOTE | 2019-07-03 10:51 | PCM.OPNOTE ---
- General Post-Op/Procedure Note Date of Surgery/Procedure: 07/03/19 Operative Procedure(s): Colonoscopy with polypectomy Findings: Sig polyp Pre Op Diagnosis: Screening, diarrhea Post-Op Diagnosis: Same Anesthesia Technique: MAC Primary Surgeon: Nathan Vargas Anesthesia Provider: Lorrie Alcaraz Complications: None Condition: Good
--- NOTE | 2019-07-03 13:36 | OR ---
Date of Procedure: 07/03/2019 PREOPERATIVE DIAGNOSIS: Chronic diarrhea. POSTOPERATIVE DIAGNOSIS: Sigmoid colon polyp. PROCEDURE: Colonoscopy with polypectomy. ANESTHESIA: IV sedation. PROCEDURE IN DETAIL: Patient was brought to the procedure room where she was placed on her left side and IV sedation administered. Digital rectal exam was performed which was normal. Colonoscope was inserted and advanced to the level of the cecum with some difficulty getting through the ascending colon requiring pressure on the abdomen. I was able to reach the cecum which was confirmed by identifying the appendiceal lumen and ileocecal valve. Prep was good and surfaces were well visualized. Upon withdrawing the scope, the ascending, transverse, and descending colon were normal in appearance. Sigmoid colon had a 6-mm sessile polyp located at 30 cm from the anal verge that was removed with the cautery snare and retrieved in the polyp trap. Rectum was normal and retroflexion was normal. Air was removed and the scope withdrawn. Patient tolerated the procedure well and returned to recovery in stable condition. The patient will be contacted with the pathology report when it returns. Patient will follow up with Cherise Anderson PA-C, next week for review of pathology report and ongoing evaluation of diarrhea if necessary. Recommend colonoscopy again in 3 years if the polyp is adenomatous. If the polyp is hyperplastic, she would not require any further colon screening due to age. GENOVEVA ACOSTA MD /[id number]
== END 2019-07-03 11:25 | disposition home or self-care (01) ==
LOC: LL.SDS 08:31
PROVIDERS: ATTEND Surgery
DX: K51.40 Inflammatory polyps of colon without complications (principal); I10 Essential (primary) hypertension; E78.2 Mixed hyperlipidemia; E11.22 Type 2 diabetes mellitus with diabetic chronic kidney disease; N18.9 Chronic kidney disease, unspecified; E11.36 Type 2 diabetes mellitus with diabetic cataract; H26.9 Unspecified cataract; I25.2 Old myocardial infarction; I25.10 Atherosclerotic heart disease of native coronary artery without angina pectoris; M19.90 Unspecified osteoarthritis, unspecified site; E66.9 Obesity, unspecified; Z68.34 Body mass index [BMI] 34.0-34.9, adult; Z95.5 Presence of coronary angioplasty implant and graft; Z79.84 Long term (current) use of oral hypoglycemic drugs; Z79.899 Other long term (current) drug therapy
CPT/HCPCS: 00812; 82962; J2250; J2704; J7120